=== PATIENT | female | born 1980 | race Two or more races ===

== ENCOUNTER 2021-06-20 20:21 | Emergency (ER) | payer SELFPAY ==
[~2021-06-20] VITALS: Ht 157.5 cm; Wt 91.0 kg
[2021-06-20 20:30] VITALS: BP 165/112
== END 2021-06-20 21:00 | disposition left against medical advice (07) ==
LOC: ER 20:21
DX: Z53.21 Procedure and treatment not carried out due to patient leaving prior to being seen by health care provider (principal)